=== PATIENT | male | born 1980 | race Hispanic/Latino ===

== ENCOUNTER 2023-12-20 15:48 | Emergency (ER) | payer OTHER ==
[2023-12-20 16:21] LABS: Absolute Basophils 0.1 K/uL (0-0.5); Absolute Eosinophils 0.2 K/uL (0-0.5); Absolute Lymphocytes (CBC) 2.6 K/uL (0.7-4.9); Absolute Monocytes 0.5 K/uL (0.1-1.3); Absolute Neutrophil 7.4 K/uL (1.8-8.0); Basophils % 0.7 % (0-1.3); Eosinophils % 1.6 % (0-4.4); Hematocrit 43.6 % (39.6-49.0); Hemoglobin 14.7 g/dL (13.6-17.9); Lymphocytes % 23.7 % (15.3-44.8); MCH 30.8 pg (27.0-35.0); MCHC 33.7 g/dL (32.0-36.0); MCV 91.3 fL (80-100); MPV 9.1 fL (7.6-11.3); Monocytes % 4.7 % (3.3-12.3); Neutrophils % 69.3 % (41.7-73.7); Nucleated Red Blood Cells % 0.1 % (0-0); Platelets 273 thou/uL (152-406); RBC Red Blood Cell Count 4.78 M/uL (4.33-5.43); Red Cell Distribution Width 14.2 % (12.1-15.2)
[2023-12-20 16:31] LABS: PT Prothrombin Time 9.9 SECONDS (9.4-12.5); PTT, Activated Partial Thromb 32.3 SECONDS (24.3-36.9); Protime INR 0.88
[2023-12-20 17:01] LABS: ALT/SGPT 27 U/L (16-61); AST/SGOT 22 U/L (15-37); Albumin/Globulin Ratio 1.3 (1.1-1.8); Alkaline Phosphatase 93 U/L (45-117); Anion Gap 13.1 mEq/L (5.0-15.0); BUN Blood Urea Nitrogen 24 mg/dL (7-18); Bicarbonate 23 mEq/L (21-32); Bilirubin Direct < 0.2 mg/dL (0-0.2); Bilirubin Indirect, Calculated 0.2 mg/dL (0.2-0.8); Bilirubin Total 0.4 mg/dL (0.2-1.0); Creatine Phosphokinase 194 U/L (39-308); Globulin 3.1 g/dL (2.3-3.5); Glomerular Filtration Rate 107 ml/min (=/>90); Glucose Level 100 mg/dL (74-106); Magnesium 2.4 mg/dL (1.6-2.4); Potassium 4.1 mEq/L (3.5-5.1); Protein, Total 7.1 g/dL (6.4-8.2); Sodium Level 141 mEq/L (136-145); Troponin High Sensitivity 6.5 pg/mL (<58.9)
--- NOTE | 2023-12-20 17:20 | RAD REPORT ---
EXAM DESCRIPTION: CT - Head Brain Wo Cont - 12/20/2023 5:09 pm CLINICAL HISTORY: July 2023 COMPARISON: none TECHNIQUE: Computed axial tomography of the head was obtained. IV contrast was not requested. All CT scans are performed using dose optimization technique as appropriate and may include automated exposure control or mA/KV adjustment according to patient size. FINDINGS: An intracranial bleed is not seen The ventricles are normal in caliber No significant hypodense areas within the brain visualized No extra-axial fluid collection is noted. Fluid within the sinuses/ mastoids is not seen IMPRESSION: No acute intracranial abnormality is seen If patient's symptoms persist MRI of the brain would be recommended
--- NOTE | 2023-12-20 18:04 | ER ---
Nurse's Notes [facility] Name: Nagi Arita Age: 43 yrs Sex: Male : 1980 Arrival Date: 12/20/2023 Time: 15:48 Bed 2 Private MD: Diagnosis: Headache;Other seizures Presentation: 12/19 15:54 Chief complaint: Patient states: Sustained a head injury approx 4 months ago, had ph almita to back of head, reports that in the last month he has been having "seizures", sensitivity to light and memory loss. Coronavirus screen: Vaccine status: Patient reports receiving the 2nd dose of the covid vaccine. Ebola Screen: No symptoms or risks identified at this time. Initial Sepsis Screen: Does the patient meet any 2 criteria? No. Patient's initial sepsis screen is negative. Does the patient have a suspected source of infection? No. Patient's initial sepsis screen is negative. Risk Assessment: Do you want to hurt yourself or someone else? Patient reports no desire to harm self or others. Onset of symptoms was December 20, 2023. 15:54 Method Of Arrival: Law Enforcement: [place] [employer] 15:54 Acuity: SHANNON 3 ph Triage Assessment: 15:57 General: Appears in no apparent distress. Behavior is calm, cooperative. Pain: Denies ph pain. Neuro: Level of Consciousness is awake, alert, obeys commands, Oriented to person, place, time, situation, Reports photophobia Seizure activity reported over the past month. Cardiovascular: Capillary refill < 3 seconds in bilateral fingers Patient's skin is warm and dry. Respiratory: Airway is patent Respiratory effort is even, unlabored. Derm: Skin is pink, warm \\T\\ dry. Historical: - Allergies: 15:57 PENICILLINS; ph - PMHx: 15:57 None; ph - Immunization history:: Adult Immunizations up to date. - Infectious Disease History:: Denies. - Social history:: Smoking status: unknown. Screenin:23 [facility] ED Fall Risk Assessment (Adult) History of falling in the last 3 months, ph including since admission No falls in past 3 months (0 pts) Confusion or Disorientation No (0 pts) Intoxicated or Sedated No (0 pts) Impaired Gait No (0 pts) Mobility Assist Device Used No (0 pt) Altered Elimination No (0 pt) Score/Fall Risk Level 0 - 2 = Low Risk Oriented to surroundings, Maintained a safe environment, Hourly rounding (assess needs \\T\\ fall precautionary measures) done. Abuse screen: Denies threats or abuse. Denies injuries from another. Nutritional screening: No deficits noted. Tuberculosis screening: No symptoms or risk factors identified. Assessment: 16:29 General: SEE TRIAGE ASSESSMENT. ph Vital Signs: 15:54 BP 137 / 109; Pulse 80; Resp 18; Temp 97.8; Pulse Ox 98% on R/A; Weight 89.81 kg; ph Height 5 ft. 6 in. ; 17:25 BP 143 / 81; Pulse 96; Resp 18; Pulse Ox 99% on R/A; ph 18:15 BP 134 / 74; Pulse 87; Resp 18; Temp 97.9; Pulse Ox 98% on R/A; ph 15:54 Body Mass Index 31.96 (89.81 kg, 167.64 cm) ph ED Course: 15:54 Patient arrived in ED. ko1 15:54 Ivette Moore FNP-C is [facility]. kb 15:54 Belia Hart MD is Attending Physician. kb 15:57 Triage completed. ph 15:59 Trisha Gifford, RN is Primary Nurse. ph 15:59 Arm band placed on Patient placed in an exam room, on a stretcher. ph 16:23 Initial lab(s) drawn, by me, sent to lab. Inserted saline lock: 22 gauge in right ph antecubital area, using aseptic technique. Blood collected. Flushed with 10 mL NS. 16:24 Patient has correct armband on for positive identification. Bed in low position. Call light in reach. Side rails up X2. Client placed on continuous cardiac and pulse oximetry monitoring. NIBP monitoring applied. 17:11 CT Head Brain wo Cont In Process Unspecified. EDMS 18:16 No provider procedures requiring assistance completed. IV discontinued, intact, ph bleeding controlled, No redness/swelling at site. Pressure dressing applied. Administered Medications: 18:17 Drug: Acetaminophen PO 1000 mg PO once Route: PO; ph 18:17 Follow up: Response: No adverse reaction ph Medication: 16:24 VIS not applicable for this client. ph Outcome: 18:03 Discharge ordered by . kb 18:16 Discharged to Law Enforcement ph 18:16 Condition: good 18:16 Discharge instructions given to patient, Instructed on discharge instructions, follow up and referral plans. Demonstrated understanding of instructions, follow-up care, 18:17 Patient left the ED. ph Signatures: Dispatcher [employer] Ivette Mayen, FLATWORK TIER-C FLATWORK TIER-Trisha Coffey, RN RN ph Rae Carrington RN RN ko1
--- NOTE | 2023-12-20 18:04 | EDPHYS ---
Physician Documentation [facility] Name: Nagi Arita Age: 43 yrs Sex: Male : 1980 Arrival Date: 12/20/2023 Time: 15:48 Bed 2 Private MD: ED Physician Belia Hart HPI: 12/19 18:58 This 43 yrs old Male presents to ER via Law Enforcement with complaints of kb headaches, seizures. 18:58 Pt is a 43 year old male who reports daily headaches, "memory isn't as good as it used kb to be," and 3 seizures over the last month. States he had a head injury 4 months ago and believes that is the cause. Denies any recent injuries. Currently asymptomatic. . Historical: - Allergies: 15:57 PENICILLINS; ph - PMHx: 15:57 None; ph - Immunization history:: Adult Immunizations up to date. - Infectious Disease History:: Denies. - Social history:: Smoking status: unknown. ROS: 19:02 Constitutional: As per HPI kb Exam: 19:02 Constitutional: This is a well developed, well nourished patient who is awake, alert, kb and in no acute distress. Head/Face: Normocephalic, atraumatic. Eyes: Pupils equal round and reactive to light, extra-ocular motions intact. Lids and lashes normal. Conjunctiva and sclera are non-icteric and not injected. Cornea within normal limits. Periorbital areas with no swelling, redness, or edema. ENT: Moist Mucous membranes Cardiovascular: Regular rate Respiratory: Respirations even and unlabored. No increased work of breathing. Talking in full sentences Skin: Warm, dry with normal turgor. Normal color. MS/ Extremity: Pulses equal, no cyanosis. Neurovascular intact. Full, normal range of motion. Neuro: Awake and alert, GCS 15, oriented to person, place, time, and situation. Moves all extremities. Normal gait. 19:02 ECG was reviewed by the Attending Physician. kb Vital Signs: 15:54 BP 137 / 109; Pulse 80; Resp 18; Temp 97.8; Pulse Ox 98% on R/A; Weight 89.81 kg; ph Height 5 ft. 6 in. ; 17:25 BP 143 / 81; Pulse 96; Resp 18; Pulse Ox 99% on R/A; ph 18:15 BP 134 / 74; Pulse 87; Resp 18; Temp 97.9; Pulse Ox 98% on R/A; ph 15:54 Body Mass Index 31.96 (89.81 kg, 167.64 cm) ph MDM: 15:54 Patient medically screened. kb 19:02 Differential diagnosis: seizure, ICH, migraine. Data reviewed: vital signs, nurses kb notes. Management of patient was discussed with the following: Dr Hart. Counseling: I had a detailed discussion with the patient and/or guardian regarding the historical points, exam findings, and any diagnostic results supporting the discharge/admit diagnosis, lab results, radiology results, the need for outpatient follow up, a neurologist, to return to the emergency department if symptoms worsen or persist or if there are any questions or concerns that arise at home. 12/19 15:55 Order name: Basic Metabolic Panel; Complete Time: 17:05 kb 12/19 15:55 Order name: CBC with Diff; Complete Time: 16:28 kb 12/19 15:55 Order name: Hepatic Function; Complete Time: 17:05 kb 12/19 15:55 Order name: Magnesium; Complete Time: 17:05 kb 12/19 15:55 Order name: Protime (+inr); Complete Time: 16:58 kb 12/19 15:55 Order name: Ptt, Activated; Complete Time: 16:58 kb 12/19 15:55 Order name: Troponin High Sensitivity; Complete Time: 17:05 kb 12/19 15:56 Order name: CK; Complete Time: 17:05 kb 12/19 15:56 Order name: Lactate w/ 2H reflex if indic.; Complete Time: 17:29 kb 12/19 15:55 Order name: CT Head Brain wo Cont; Complete Time: 17:23 kb 12/19 15:55 Order name: EKG; Complete Time: 15:56 kb 12/19 15:55 Order name: Cardiac monitoring; Complete Time: 16:43 kb 12/19 15:55 Order name: EKG - Nurse/Tech; Complete Time: 16:43 kb 12/19 15:55 Order name: IV Saline Lock; Complete Time: 16:43 kb 12/19 15:55 Order name: Labs collected and sent; Complete Time: 16:43 kb 12/19 15:55 Order name: NPO; Complete Time: 16:43 kb 12/19 15:55 Order name: O2 Per Protocol; Complete Time: 16:43 kb 12/19 15:55 Order name: O2 Sat Monitoring; Complete Time: 16:43 kb EC:02 Rate is 86 beats/min. Rhythm is regular. QRS [place] is Normal. NH interval is normal at kb 128 msec. QRS interval is normal at 86 msec. QT interval is normal at 423 msec. Administered Medications: 18:17 Drug: Acetaminophen PO 1000 mg PO once Route: PO; ph 18:17 Follow up: Response: No adverse reaction ph Disposition: 19:37 I reviewed the patient's care provided by Advanced Practice Provider \\T\\ agree w/ the sd2 diagnosis \\T\\ care plan. I personally saw the pt \\T\\ performed a substantive portion of the visit, incldng all aspects of the (History/Exam/Medical Decision Making). Disposition Summary: 12/20/23 18:03 Discharge Ordered Notes: Follow up with neurologist for possible EEG
Location: Home kb Condition: Stable kb Diagnosis - Headache kb - Other seizures kb Followup: kb - With: Emergency Department - When: As needed - Reason: Worsening of condition Followup: kb - With: Private Physician - When: 2 - 3 days - Reason: Recheck today's complaints, Continuance of care, Re-evaluation by your physician Discharge Instructions: - Discharge Summary Sheet kb - Seizure, Adult, [id number] kb - General Headache Without Cause, [id number] kb Forms: - Medication Reconciliation Form kb - Antibiotic Education kb - Prescription Opioid Use kb - Patient Portal Instructions kb - Leadership Thank You Letter kb Signatures: Dispatcher [employer] Ivette Mayen, JOHN-C JOHN-Trisha Coffey RN RN Belia Hart MD MD sd2 Corrections: (The following items were deleted from the chart) 15:56 15:56 URINE DRUG SCREEN+[id number] ordered. EDME EDMS
[2023-12-20] MEDS ORDERED: ACETAMINOPHEN 500 MG TAB ONE (18:12)
[2023-12-20 18:29] VITALS: BP 134/74; TEMP 97.9; O2SAT 98
--- NOTE | 2023-12-22 14:11 | EKG ---
Test Date: 2023-12-20 Test Time: 16:40:07 Fleet Driver: PH MEASUREMENT RESULTS: Intervals: Rate: 86 NM: 128 QRSD: 86 QT: 354 QTc: 423 [place]: P: 46 NM: 128 QRS: 61 T: 24 INTERPRETIVE STATEMENTS: Normal sinus rhythm Normal ECG Compared to ECG 07/28/2023 20:01:36 Supraventricular tachycardia no longer present ST (T wave) deviation no longer present Possible ischemia no longer present Electronically Signed On 12-22-23 14:07:54 CDT by Zachary Escoto
== END 2023-12-20 18:17 | disposition home or self-care (01) ==
LOC: ER 15:48
DX: R51.9 Headache, unspecified (principal); G40.89 Other seizures
CPT/HCPCS: 36415; 70450; 80048; 80076; 82550; 83605; 83735; 84484; 85025; 85610; 85730; 93005; 99284